=== PATIENT | female | born 1960 | race Caucasian/White ===

== ENCOUNTER → 2018-06-15 | Outpatient (CLI) | payer OTHER ==
--- NOTE | 2018-06-15 10:00 | MM ---
Reason for exam: additional evaluation requested from prior study. Last mammogram was performed 3 years and 3 months ago. History: Benign excisional biopsy of the right breast, 1986. Took hormonal contraceptives beginning at age 24. Physical Findings: Nurse did not find any significant physical abnormalities on exam. MG 3D Diag Mammo W/Cad P[facility] Bilateral CC and MLO view(s) were taken. Prior study comparison: March 15, 2015, left breast MG 3d work up w/cad LT. March 08, 2015, bilateral MG screening mammo w CAD. The breast tissue is heterogeneously dense. This may lower the sensitivity of mammography. There is no discrete abnormality. No significant new findings when compared with previous films. These results were verbally communicated with the patient and result sheet given to the patient on 06/15/18. ASSESSMENT: Negative, BI-RAD 1 RECOMMENDATION: Routine screening mammogram of both breasts in 1 year. Manage patient on a clinical basis.
== END | disposition home or self-care (01) ==
LOC: RADMAMWWP 09:24
PROVIDERS: ATTEND Obstetrics & Gynecology
DX: R92.8 Other abnormal and inconclusive findings on diagnostic imaging of breast (principal)
CPT/HCPCS: 77062; 77066

== ENCOUNTER 2020-01-18 07:14 | Day surgery (SDC) | payer OTHER ==
[2020-01-13 11:45] VITALS: BMI 28.5
[~2020-01-18 07:14] MED LIST: LACTATED RINGERS 1,000 ML IV SCH; LIDOCAINE 1% (10MG/ML) FOR IV START INTRADERMA PRN
[2020-01-18 07:35] VITALS: RESP 16; TEMP 98
[2020-01-18] MEDS ORDERED: LIDOCAINE 1% INJ 10MG/ML (20 ML MDV) ONE (08:07)
[2020-01-18] MEDS ORDERED: PROPOFOL 10 MG/ML 20 ML VIAL IV ONE (08:07)
--- NOTE | 2020-01-18 08:39 | P.PCN ---
Date of Procedure: 01/18/20 Description of Procedure: BRIEF HISTORY: Patient is a 59-year-old female presenting for outpatient colonoscopy for evaluation of abnormal findings, positive Cologard. No prior colonoscopy. No change in bowel habits. No family history of colon cancer. PROCEDURE PERFORMED: Colonoscopy with polypectomy. PREOPERATIVE DIAGNOSIS: Abnormal findings, positive Cologard, no prior colonoscopy. ESTIMATED BLOOD LOSS: Minimal. IV sedation per Anesthesia. PROCEDURE: After informed consent was obtained, the patient, was brought into the endoscopy unit. IV sedation was administered by Anesthesia under continuous monitoring. Digital rectal examination was normal. Initially the Olympus CF-190 flexible video colonoscope was then inserted in the rectum, gradually advanced into the cecum without any difficulty. Careful examination was performed as the scope was gradually being withdrawn. Ileocecal valve and the appendiceal orifice were visualized and appeared normal. Prep was excellent. Mucosa of the cecum, ascending colon, transverse colon, descending colon, sigmoid colon, and rectum appeared normal. 2 diminutive rectal polyps measuring 1-2 mm in size removed with cold forcep polypectomy. Flat polyps measuring 4 mm in the hepatic flexure and 5 mm in the cecum removed with cold snare polypectomy. Large flat 4 mm ileocecal valve polyp removed with cold snare polypectomy. Retroflexion was performed in the rectum and no lesions were seen. The patient tolerated the procedure well. IMPRESSION: Flat ileocecal valve polyp removed with cold snare polypectomy. 2 sessile polyps removed with cold snare polypectomy from the hepatic flexure and cecum. 2 diminutive rectal polyps removed with cold forcep polypectomy. RECOMMENDATIONS: Findings of this examination were discussed with the patient . Okay to resume diet. Okay to resume medications. Await pathology from polypectomy. Recommend repeat colonoscopy in 3 years for high risk colon polyps pending pathology from polypectomy.
[2020-01-18 08:42] VITALS: BP 107/60
[2020-01-18 08:57] VITALS: PULSE 66
== END 2020-01-18 09:07 | disposition home or self-care (01) ==
LOC: ORWHC2ENDO 07:14
PROVIDERS: ATTEND Internal Medicine
DX: D12.3 Benign neoplasm of transverse colon (principal); D12.0 Benign neoplasm of cecum; K62.1 Rectal polyp; Z87.891 Personal history of nicotine dependence; F41.9 Anxiety disorder, unspecified; F32.9 Major depressive disorder, single episode, unspecified; Z98.51 Tubal ligation status; Z79.899 Other long term (current) drug therapy
CPT/HCPCS: 88305; 45380; 45385; J2001; J2704

== ENCOUNTER → 2020-03-31 | Outpatient (CLI) | payer OTHER ==
--- NOTE | 2020-04-03 11:49 | MM ---
Reason for exam: screening (asymptomatic). Last mammogram was performed 1 year and 9 months ago. History: Benign excisional biopsy of the right breast, 1986. Took hormonal contraceptives beginning at age 24. Physical Findings: A clinical breast exam by your physician is recommended on an annual basis and results should be correlated with mammographic findings. MG 3D Screening Mammo W/Cad Bilateral CC and MLO view(s) were taken. Prior study comparison: June 15, 2018, bilateral MG 3d diag mammo w/cad [facility]. March 08, 2015, bilateral MG screening mammo w CAD. The breast tissue is heterogeneously dense. This may lower the sensitivity of mammography. No significant changes when compared with prior studies. ASSESSMENT: Negative, BI-RAD 1 RECOMMENDATION: Routine screening mammogram of both breasts in 1 year.
== END | disposition home or self-care (01) ==
LOC: RADMAMWWP 08:36
PROVIDERS: ATTEND Obstetrics & Gynecology
DX: Z12.31 Encounter for screening mammogram for malignant neoplasm of breast (principal)
CPT/HCPCS: 77063; 77067

== ENCOUNTER → 2021-05-30 | Outpatient (CLI) | payer OTHER ==
--- NOTE | 2021-05-31 11:56 | MM ---
Reason for exam: screening (asymptomatic). Last mammogram was performed 1 year and 2 months ago. History: Patient is postmenopausal. Benign excisional biopsy of the right breast, 1986. Took hormonal contraceptives beginning at age 24. Physical Findings: A clinical breast exam by your physician is recommended on an annual basis and results should be correlated with mammographic findings. MG 3D Screening Mammo W/Cad Bilateral CC, MLO, and XCCL view(s) were taken. Prior study comparison: March 31, 2020, bilateral MG 3d screening mammo w/cad. June 15, 2018, bilateral MG 3d diag mammo w/cad [facility]. No significant changes when compared with prior studies. ASSESSMENT: Benign, BI-RAD 2 RECOMMENDATION: Routine screening mammogram of both breasts in 1 year.
== END | disposition home or self-care (01) ==
LOC: RADMAMWWP 10:44
PROVIDERS: ATTEND Obstetrics & Gynecology
DX: Z12.31 Encounter for screening mammogram for malignant neoplasm of breast (principal); Z78.0 Asymptomatic menopausal state
CPT/HCPCS: 77063; 77067

== ENCOUNTER → 2023-01-21 | Outpatient (CLI) | payer OTHER ==
--- NOTE | 2023-01-22 16:13 | MM ---
Reason for Exam: Screening (asymptomatic). Last mammogram was performed 1 year(s) and 8 month(s) ago. Patient History: Menarche at age 18. First Full-Term at age 21. Postmenopausal. Hormonal Contraceptives, from age 24 until age 26. 1987, Benign Excisional Biopsy on the right side. Risk Values: Denice 5 year model risk: 1.1%. NCI Lifetime model risk: 5.7%. Prior Study Comparison: 06/15/2018 Bilateral Diagnostic Mammogram, [facility]. 03/31/2020 Bilateral Screening Mammogram, [facility]. 05/30/2021 Bilateral Screening Mammogram, [facility]. Tissue Density: There are scattered fibroglandular densities. Findings: Analyzed By CAD. Heart appears symmetrical and stable. No significant interval change is evident. No suspicious groups of microcalcifications, spiculated or lobular masses, architectural distortion or other secondary signs of malignancy are mammographically apparent. Overall Assessment: Negative, BI-RAD 1 Management: Screening Mammogram of both breasts in 1 year. A negative mammogram report should not preclude additional follow up of suspicious palpable abnormalities. Patient should continue monthly self breast exam. A clinical breast exam by your physician is recommended on an annual basis and results should be correlated with mammographic findings. Electronically signed and approved by: Sea Mehta D.O. Radiologis
== END | disposition home or self-care (01) ==
LOC: RADMAMWWP 15:03
PROVIDERS: ATTEND Family Medicine
DX: Z12.31 Encounter for screening mammogram for malignant neoplasm of breast (principal); Z78.0 Asymptomatic menopausal state
CPT/HCPCS: 77063; 77067

== ENCOUNTER 2023-02-05 09:04 | Day surgery (SDC) | payer OTHER ==
[2023-01-08 15:45] VITALS: BMI 31.1
[2023-02-05] MEDS ORDERED: LIDOCAINE 1% INJ 10MG/ML (20 ML MDV) ONE (10:33)
[2023-02-05] MEDS ORDERED: PROPOFOL 10 MG/ML 20 ML VIAL IV ONE (10:33)
[2023-02-05 10:37] VITALS: TEMP 98.1
--- NOTE | 2023-02-05 10:45 | P.PCN ---
Date of Procedure: 02/05/23 Procedure(s) Performed: BRIEF HISTORY: Patient is a 62-year-old pleasant 1 female scheduled for an elective colonoscopy as a part of evaluation of prior history of colon polyps. Last colonoscopy was 3 years ago and was noted to have multiple colon polyps.. PROCEDURE PERFORMED: Colonoscopy. PREOPERATIVE DIAGNOSIS: History of colon polyps. IV sedation per Anesthesia. PROCEDURE: After informed consent was obtained, the patient, was brought into the endoscopy unit. IV sedation was administered by Anesthesia under continuous monitoring. Digital rectal examination was normal. Initially the Olympus CF-160 flexible video colonoscope was then inserted in the rectum, gradually advanced into the cecum without any difficulty. Careful examination was performed as the scope was gradually being withdrawn. Ileocecal valve and the appendiceal orifice were visualized and appeared normal. Prep was excellent. Mucosa of the cecum, ascending colon, transverse colon, descending colon, sigmoid colon, and rectum appeared normal. Retroflexion was performed in the rectum and no lesions were seen. The patient tolerated the procedure well. IMPRESSION: Normal-appearing colon from rectum to cecum with no evidence of colorectal neoplasia . RECOMMENDATIONS: Findings of this examination were discussed with the patient as well as her family.. She was advised to have repeat colonoscopy in 5 years from now because of prior history of multiple colon polyps.
[2023-02-05 11:02] VITALS: RESP 17
[2023-02-05 11:27] VITALS: BP 95/52; PULSE 67
== END 2023-02-05 11:25 | disposition home or self-care (01) ==
LOC: ORWHC2ENDO 09:04
PROVIDERS: ATTEND Internal Medicine Gastroenterology
DX: Z12.11 Encounter for screening for malignant neoplasm of colon (principal); E78.5 Hyperlipidemia, unspecified; F41.9 Anxiety disorder, unspecified; F32.A Depression, unspecified; Z79.899 Other long term (current) drug therapy; Z98.890 Other specified postprocedural states; Z86.010 Personal history of colon polyps
CPT/HCPCS: 45378; J2001; J2704

== ENCOUNTER → 2024-01-01 | Outpatient (CLI) | payer OTHER ==
--- NOTE | 2024-01-01 10:20 | CTL ---
EXAMINATION TYPE: CT Low Dose Lung DATE OF EXAM ORDERED: 01/01/2024 COMPARISON: None CLINICAL INDICATION: Female, 63 years old with history of Z12.2 LUNG CA SCREEN Z87.891 HX SMOKING; PH H, former smoker quit 8 years ago. smoked 1 PPD x30 years, Lung cancer screening, History of Smoking/ tobacco use. TECHNIQUE: Low dose computed tomography scan was performed through the chest at 1 mm thick sections a nd reconstructed images in multiple planes at 1 mm and [address] DLP: 128.[address] CTDI: 3.6 mGy Automated exposure control for dose reduction was used. CT DIAGNOSTIC QUALITY: Satisfactory FINDINGS: There are a few scattered micronodules. There is no suspicious lung mass or nodule. There is no airspace consolidation or abnormal interstitial density. There is no pleural effusion or pneumothorax. The great vessels just normal is no mediastinal, hilar or axillary adenopathy.. The heart size is mil dly prominent. Limited scanning through the upper abdomen reveals no gross abnormality. No focal osseous lesions are seen. IMPRESSION: 1. Lung rads category 2 benign. Scattered micronodules. Continue routine screening at yearly interval s. 2. No acute cardiac pulmonary disease. 3. Mild cardiomegaly [facility], , 01/01/2024 10:18 AM
== END | disposition home or self-care (01) ==
LOC: RADCTMAIN 09:40
PROVIDERS: ATTEND Family Medicine
DX: Z12.2 Encounter for screening for malignant neoplasm of respiratory organs (principal); R91.8 Other nonspecific abnormal finding of lung field; I51.7 Cardiomegaly; Z87.891 Personal history of nicotine dependence
CPT/HCPCS: 71271

== ENCOUNTER → 2024-01-23 | Outpatient (CLI) | payer OTHER ==
--- NOTE | 2024-01-25 03:44 | MM ---
Reason for Exam: Screening (asymptomatic). Last screening mammogram was performed 12 month(s) ago. Patient History: Menarche at age 18. First Full-Term at age 21. Postmenopausal. Hormonal Contraceptives, from age 24 until age 26. 1987, Benign Excisional Biopsy on the right side. Risk Values: Denice 5 year model risk: 1.2%. NCI Lifetime model risk: 5.6%. Prior Study Comparison: 03/31/2020 Bilateral Screening Mammogram, [facility]. 05/30/2021 Bilateral Screening Mammogram, [facility]. 01/21/2023 Bilateral MG 3D screening mammo w/cad, [facility]. Tissue Density: There are scattered areas of fibroglandular density. Findings: Analyzed By CAD. The pattern is symmetrical. No significant interval change. No suspicious groups of microcalcifications, spiculated or lobular masses, architectural distortion or other secondary signs of malignancy are mammographically apparent. Overall Assessment: Benign, BI-RAD 2 Management: Screening Mammogram of both breasts in 1 year. A negative mammogram report should not preclude additional follow up of suspicious palpable abnormalities. Patient should continue monthly self breast exam. A clinical breast exam by your physician is recommended on an annual basis and results should be correlated with mammographic findings. Note on Denice scores and lifetime risk: 1. A Denice score greater than 3% is considered moderate risk. If this is the case, consider specialist referral to assess eligibility for a risk reducing agent. 2. If overall lifetime risk for the development of breast cancer is 20% or higher, the patient may qualify for future screening with alternating mammogram and breast MRI. [facility], , 01/25/2024 3:42 AM. Electronically signed and approved by: Sea Mehta D.O. Radiologis
== END | disposition home or self-care (01) ==
LOC: RADMAMWWP 09:57
PROVIDERS: ATTEND Family Medicine
DX: Z12.31 Encounter for screening mammogram for malignant neoplasm of breast (principal); R92.323 Mammographic fibroglandular density, bilateral breasts; Z78.0 Asymptomatic menopausal state
CPT/HCPCS: 77063; 77067